=== PATIENT | male | born 1955 | race Caucasian/White ===

== ENCOUNTER 2024-08-29 15:45 | Outpatient (REF) | payer MEDICARE, SELFPAY ==
[2024-08-29 21:25] LABS: HCT 48.3 % (40.0-50.0); HGB 15.8 g/dL (13.5-17.5); MCH 29.2 pg (27.0-33.0); MCHC 32.7 % (32.0-36.0); MCV 89 fL (80-95); MPV 10.2 fL (8.0-11.0); Platelet Count 176 10^3/uL (130-400); RBC 5.41 10^6/uL (4.36-5.78); RDW 13.1 % (11.8-14.1); RDW-SD 42.9 fL; WBC 6.03 10^3/uL (4.4-10.8)
[2024-08-29 21:50] LABS: ALT 39 U/L (16-63); AST 28 U/L (15-37); Albumin 3.9 g/dL (3.4-5.0); Alkaline Phosphatase 87 U/L (46-116); Anion Gap 8.2 mmol/L (3-11); BUN 19 mg/dL (7-18); Bilirubin, Total 0.4 mg/dL (0.2-1.0); CO2 29.8 mmol/L (21.0-32.0); Calcium 9.1 mg/dL (8.5-10.1); Calculated LDL 99 mg/dL (<100); Chloride 106 mmol/L (98-107); Cholesterol 190 mg/dL (<200); Estimated GFR 81.98 (mL/min/1.73m2); Glucose 93 mg/dL (74-106); HDL Cholesterol 48 mg/dL (>or=40); Potassium 4.1 mmol/L (3.5-5.1); Sodium 144 mmol/L (136-145); Total Protein 6.9 g/dL (6.4-8.2); Triglyceride 218 mg/dL (<150)
[2024-08-30 18:14] LABS: T3,Free 3.8 pg/mL (2.8-5.3)
[2024-08-30 18:25] LABS: T3, Total 135 ng/dL (97-169)
== END 2024-08-29 15:46 | disposition home or self-care (01) ==
LOC: LBN 15:45
PROVIDERS: PCP Nurse Practitioner Family; Visit Provider Nurse Practitioner Family
DX: E05.90 Thyrotoxicosis, unspecified without thyrotoxic crisis or storm (principal)
CPT/HCPCS: 80053; 80061; 85027; 84443; 84480; 84481

== ENCOUNTER → 2025-04-03 12:47 | Outpatient (BNVA) | payer MEDICARE, SELFPAY | PROVIDERS: PCP Nurse Practitioner Family; Referring Provider Nurse Practitioner Family; Visit Provider Physical Therapy Assistant | DX: Z12.11 Encounter for screening for malignant neoplasm of colon (principal); Z86.0100 Personal history of colon polyps, unspecified ==